=== PATIENT | female | born 1970 | race Hispanic/Latino ===

== ENCOUNTER 2017-03-01 08:55 | Emergency (ER) | payer MEDICAID ==
[2017-03-01 09:06] VITALS: BMI 31.3
[2017-03-01 09:07] VITALS: BP 119/77; PULSE 72; RESP 20; TEMP 98.1; O2SAT 100
[2017-03-01 11:22] LABS: BASO % 0.6 % (0.0-2.0); EOS # 0.1 K/uL (0.0-0.7); EOS % 1.7 % (0.0-4.0); HEMATOCRIT 35.4 % (34.0-47.0); LYMPH # 2.3 K/uL (1.0-4.3); LYMPH % 35.6 % (20.0-40.0); MEAN CORPUSCULAR HEMOGLOBIN 27.5 pg (27.0-31.0); MEAN CORPUSCULAR HGB CONC 33.1 g/dL (33.0-37.0); MONO # 0.5 K/uL (0.0-0.8); MONO % 8.4 % (0.0-10.0); NEUT # 3.4 K/uL (1.8-7.0); NEUT % 53.7 % (50.0-75.0); NRBC % 0.1 % (0.0-0.0); RED CELL DISTRIBUTION WIDTH 13.6 % (11.5-14.5); WHITE BLOOD COUNT 6.4 K/uL (4.8-10.8)
--- NOTE | 2017-03-01 11:25 | ED PDOC ---
HPI: CCC, URI, Sore Throat Time Seen by Provider: 03/01/17 09:34 Chief Complaint (Nursing): ENT Problem Chief Complaint (Provider): ear pain History Per: Patient History/Exam Limitations: no limitations Additional Complaint(s): 46yo F in Ed with 3d of left sided neck pain radiating to ear without fever, chills body aches drainage fro ear swelling of tonsils or cough. pt admits to discomfort when swallowing without trismus or drooling. Past Medical History Reviewed: Historical Data, Nursing Documentation, Vital Signs Vital Signs: Last Vital Signs Temp 98.1 F 03/01/17 09:06 Pulse 72 03/01/17 09:06 Resp 20 03/01/17 09:06 BP 119/77 03/01/17 09:06 Pulse Ox 100 03/01/17 12:04 - Medical History PMH: Bipolar Disorder, Depression, Diabetes, HTN - Surgical History Surgical History: Cholecystectomy, (2 ) - Family History Family History: States: Unknown Family Hx - Home Medications Home Medications: Ambulatory Orders Medication Instructions Recorded Aripiprazole [Abilify] 2 mg PO DAILY 04/09/15 Empagliflozin [Jardiance] 10 mg PO DAILY 04/09/15 Escitalopram [Lexapro] 10 mg PO DAILY 04/09/15 Desvenlafaxine Succinate [Pristiq] 100 mg PO DAILY 08/21/16 Third High Blood Pressure Medicine PO DAILY 08/21/16 amLODIPine [Norvasc] PO DAILY 08/21/16 hydroCHLOROthiazide [Microzide] mg PO DAILY 08/21/16 Cetirizine HCl [Zyrtec] 10 mg PO DAILY #15 capsule 01/28/17 Pseudoephedrine [Sudafed Tab] 60 mg PO Q6 PRN #8 tab 01/28/17 Ibuprofen [Motrin] 400 mg PO Q6 #30 tab 03/01/17 - Allergies Allergies/Adverse Reactions: Allergies Allergy/AdvReac Type Severity Reaction Status Date / Time No Known Allergies Allergy Verified 01/12/15 15:31 Review of Systems ROS Statement: Except As Marked, All Systems Reviewed And Found Negative Constitutional: Negative for: Fever, Chills ENT: Positive for: Throat Swelling Physical Exam - Reviewed Nursing Documentation Reviewed: Yes Vital Signs Reviewed: Yes - Physical Exam Appears: Positive for: Non-toxic, No Acute Distress, Uncomfortable Head Exam: Positive for: ATRAUMATIC, NORMAL INSPECTION, NORMOCEPHALIC Skin: Positive for: Normal Color, Warm, DRY Eye Exam: Positive for: Normal appearance, EOMI, PERRL ENT: Positive for: Normal ENT Inspection. Negative for: Pharyngeal Erythema, Tonsillar Exudate, Tonsillar Swelling Neck: Positive for: Normal, Pain On Movement Of Neck (pain noted to left submandilbular area mild swelling noted. ) Cardiovascular/Chest: Positive for: Regular Rate, Rhythm Respiratory: Positive for: CNT, Normal Breath Sounds Neurologic/Psych: Positive for: Alert, Oriented - Laboratory Results Result Diagrams: 03/01/17 11:16 03/01/17 11:16 - ECG O2 Sat by Pulse Oximetry: 100 - Progress ED Course And Treament: impression: muscle strain vs viral vs RPA-pt will get cbc/cmp and torodol. Medical Decision Making Medical Decision Making: pt with unremarkable CBC pt with normal strep test-pt advised strongly to monitor for s/s of infxn normal VS Disposition - Clinical Impression Clinical Impression: Neck sprain - Patient ED Disposition Is Patient to be Admitted: No Counseled Patient/Family Regarding: Studies Performed, Diagnosis, Need For Followup, Rx Given - Disposition Disposition: Routine/Home Disposition Time: 14:14 Condition: STABLE Prescriptions: Ibuprofen [Motrin] 400 mg PO Q6 #30 tab Instructions: Muscle Strain (ED)
[2017-03-01 11:26] LABS: MEAN CELL VOLUME 83.1 fl (81.0-99.0)
[2017-03-01 11:31] LABS: CHLORIDE 102 mmol/L (98-107); POTASSIUM 3.9 MMOL/L (3.6-5.0); SODIUM 140 mmol/l (132-148)
[2017-03-01 11:33] LABS: BILIRUBIN,TOTAL 0.5 mg/dl (0.2-1.3); CARBON DIOXIDE 27 mmol/L (22-30); GFR AFRICAN-AMERICAN > 60
[2017-03-01 11:34] LABS: ALKALINE PHOSPHATASE 86 U/L (38-126); ALT/SGPT 30 U/L (9-52); AST/SGOT 28 U/L (14-36); BLOOD UREA NITROGEN 13 mg/dl (7-17); CALCIUM 9.1 mg/dL (8.4-10.2); GLUCOSE,RANDOM 96 mg/dL (65-105)
[2017-03-01 11:50] LABS: ALB/GLOB RATIO 1.4 (1.0-2.1)
== END 2017-03-01 14:26 | disposition home or self-care (01) ==
LOC: H.ER 08:55
DX: M54.2 Cervicalgia (principal); E11.9 Type 2 diabetes mellitus without complications; F31.9 Bipolar disorder, unspecified; I10 Essential (primary) hypertension; J02.9 Acute pharyngitis, unspecified

== ENCOUNTER 2017-11-19 08:34 | Emergency (ER) | payer MEDICAID ==
[2017-11-19 08:34] VITALS: BMI 31.3
[2017-11-19 08:43] VITALS: BP 131/77; PULSE 94; RESP 20; TEMP 98.4; O2SAT 99
[2017-11-19] MEDS ORDERED: Sodium Chloride 0.9% 1,000 ML IV STA (09:23)
--- NOTE | 2017-11-19 09:26 | ED PDOC ---
HPI: Abdomen Time Seen by Provider: 11/19/17 09:08 Chief Complaint (Nursing): Abdominal Pain Chief Complaint (Provider): Epigastric pain History Per: Patient History/Exam Limitations: no limitations Onset/Duration Of Symptoms: Days () Outside of [place] travel?: No Current Symptoms Are (Timing): Still Present Additional History Per: Patient Additional Complaint(s): Pt. with epigastric pain. Similar in the past. Has had an endoscopy and dx with gastritis. Pt. tried otc meds and did not help. No new food or drinks. No back pain, dysuria, weakness, headaches, dizziness. No chest pain, lower abd pain. Has nausea, no vomit or diarrhea. Past Medical History Vital Signs: Last Vital Signs Temp 98.4 F 11/19/17 08:38 Pulse 94 H 11/19/17 08:38 Resp 20 11/19/17 08:38 BP 131/77 11/19/17 08:38 Pulse Ox 99 11/19/17 09:48 - Medical History PMH: Bipolar Disorder, Depression, Diabetes, HTN - Surgical History Surgical History: Cholecystectomy, (2 ) - Family History Family History: States: Unknown Family Hx - Living Arrangements Living Arrangements: With Family - Social History Current smoker - smoking cessation education provided: No Alcohol: None Drugs: Denies - Home Medications Home Medications: Ambulatory Orders Medication Instructions Recorded Aripiprazole [Abilify] 2 mg PO DAILY 04/09/15 Empagliflozin [Jardiance] 10 mg PO DAILY 04/09/15 Escitalopram [Lexapro] 10 mg PO DAILY 04/09/15 Desvenlafaxine Succinate [Pristiq] 100 mg PO DAILY 08/21/16 Third High Blood Pressure Medicine PO DAILY 08/21/16 amLODIPine [Norvasc] PO DAILY 08/21/16 hydroCHLOROthiazide [Microzide] mg PO DAILY 08/21/16 Cetirizine HCl [Zyrtec] 10 mg PO DAILY #15 capsule 01/28/17 Pseudoephedrine [Sudafed Tab] 60 mg PO Q6 PRN #8 tab 01/28/17 Ibuprofen [Motrin] 400 mg PO Q6 #30 tab 03/01/17 - Allergies Allergies/Adverse Reactions: Allergies Allergy/AdvReac Type Severity Reaction Status Date / Time Sulfa (Sulfonamide Allergy RASH Verified 11/19/17 08:46 Antibiotics) Review of Systems ROS Statement: Except As Marked, All Systems Reviewed And Found Negative Gastrointestinal: Positive for: Nausea, Abdominal Pain Physical Exam - Reviewed Nursing Documentation Reviewed: Yes Vital Signs Reviewed: Yes - Physical Exam Appears: Positive for: Non-toxic, No Acute Distress Head Exam: Positive for: ATRAUMATIC, NORMAL INSPECTION, NORMOCEPHALIC Skin: Positive for: Normal Color, Warm, DRY Eye Exam: Positive for: EOMI, Normal appearance, PERRL ENT: Positive for: Normal ENT Inspection Neck: Positive for: Normal, Painless ROM Cardiovascular/Chest: Positive for: Regular Rate, Rhythm Respiratory: Positive for: CNT, Normal Breath Sounds Gastrointestinal/Abdominal: Positive for: Bowel Sounds, Soft, Tenderness (mild epigastric) Back: Positive for: Normal Inspection Extremity: Positive for: Normal ROM Neurologic/Psych: Positive for: Alert, Oriented - Laboratory Results Result Diagrams: 11/19/17 09:45 11/19/17 09:45 Interpretation Of Abn Labs: no acute - ECG O2 Sat by Pulse Oximetry: 99 - Radiology X-Ray: Interpreted by Me, Viewed By Me X-Ray Interpretation: No Acute Disease - Progress ED Course And Treament: 1031: Stable. AAOx3. Pain free. Tolerated PO. Fu with pcp. Disposition - Clinical Impression Clinical Impression: Abdominal pain - Patient ED Disposition Is Patient to be Admitted: No Counseled Patient/Family Regarding: Studies Performed, Diagnosis, Need For Followup - Disposition Referrals: [facility] [Outside] - 11/20/17 Disposition: Routine/Home Disposition Time: 10:32 Condition: STABLE Additional Instructions: Return if not better in 3 days. Instructions: Acute Abdominal Pain (ED) Forms: [facility] (Yakut)
[2017-11-19 10:02] LABS: BASO # 0.1 K/uL (0.0-0.2); BASO % 0.6 % (0.0-2.0); EOS # 0.1 K/uL (0.0-0.7); EOS % 1.6 % (0.0-4.0); HEMATOCRIT 40.7 % (34.0-47.0); LYMPH # 1.8 K/uL (1.0-4.3); LYMPH % 19.6 % (20.0-40.0); MEAN CELL VOLUME 89.6 fl (81.0-99.0); MEAN CORPUSCULAR HGB CONC 32.4 g/dL (33.0-37.0); MEAN PLATELET VOLUME 8.6 fl (7.2-11.7); MONO # 0.8 K/uL (0.0-0.8); NEUT # 6.2 K/uL (1.8-7.0); NEUT % 69.2 % (50.0-75.0); NRBC % 0.3 % (0.0-0.0); RED CELL DISTRIBUTION WIDTH 12.8 % (11.5-14.5)
[2017-11-19 10:16] LABS: ALB/GLOB RATIO 1.5 (1.0-2.1); ALKALINE PHOSPHATASE 67 U/L (38-126); ALT/SGPT 36 U/L (9-52); AST/SGOT 19 U/L (14-36); BILIRUBIN,TOTAL 0.5 mg/dl (0.2-1.3); BLOOD UREA NITROGEN 9 mg/dl (7-17); CALCIUM 8.9 mg/dL (8.4-10.2); CARBON DIOXIDE 28 mmol/L (22-30); CHLORIDE 103 mmol/L (98-107); GFR AFRICAN-AMERICAN > 60; GLUCOSE,RANDOM 120 mg/dL (65-105); LIPASE 72 U/L (23-300); POTASSIUM 4.2 MMOL/L (3.6-5.0); SODIUM 140 mmol/l (132-148); TOTAL PROTEIN 7.3 G/DL (6.3-8.2)
--- NOTE | 2017-11-19 11:32 | RAD ---
HISTORY: epgiastric pain COMPARISON: Chest radiograph dated 08/21/2016 FINDINGS: LUNGS: No active pulmonary disease. PLEURA: No significant pleural effusion identified, no pneumothorax apparent. CARDIOVASCULAR: Normal. OSSEOUS STRUCTURES: No significant abnormalities. VISUALIZED UPPER ABDOMEN: Normal. OTHER FINDINGS: None. IMPRESSION: No active disease.
== END 2017-11-19 11:25 | disposition home or self-care (01) ==
LOC: H.ER 08:34
DX: R10.13 Epigastric pain (principal); E11.9 Type 2 diabetes mellitus without complications; F31.9 Bipolar disorder, unspecified; I10 Essential (primary) hypertension
CPT/HCPCS: 71010; 80053; 83690; 85025; 96361; 96374; 96375; 99282; J2405; J7040

== ENCOUNTER 2017-11-20 09:33 | Emergency (ER) | payer MEDICAID ==
[2017-11-20 09:33] VITALS: BMI 31.3
[2017-11-20] MEDS ORDERED: Iohexol 240 (50 ml) PO ONE (10:27)
--- NOTE | 2017-11-20 10:40 | ED PDOC ---
HPI: Abdomen Time Seen by Provider: 11/20/17 09:57 Chief Complaint (Nursing): Abdominal Pain Chief Complaint (Provider): Abd pain History Per: Patient History/Exam Limitations: no limitations Onset/Duration Of Symptoms: Days (Several days) Outside of [place] travel?: No Additional Complaint(s): Abd pain epigastric. Nausea, vomit, nonbloody since yesterday night. Pain on going for several days. Pt. here yesterday for the pain and felt better so she was dc. Pt. back as she is vomiting and pain returned. No chest pain, weakness , headaches, dizziness, cough, diarrhea. States she had a runny nose today. Past Medical History Vital Signs: Last Vital Signs Temp 100.6 F H 11/20/17 09:44 Pulse 95 H 11/20/17 09:44 Resp 21 11/20/17 09:44 BP 137/79 11/20/17 09:44 Pulse Ox 99 11/20/17 10:43 - Medical History PMH: Bipolar Disorder, Depression, Diabetes, HTN - Surgical History Surgical History: Cholecystectomy, (2 ) - Family History Family History: States: Unknown Family Hx - Living Arrangements Living Arrangements: With Family - Social History Current smoker - smoking cessation education provided: No Alcohol: None Drugs: Denies - Home Medications Home Medications: Ambulatory Orders Medication Instructions Recorded Aripiprazole [Abilify] 2 mg PO DAILY 04/09/15 Empagliflozin [Jardiance] 10 mg PO DAILY 04/09/15 Escitalopram [Lexapro] 10 mg PO DAILY 04/09/15 Desvenlafaxine Succinate [Pristiq] 100 mg PO DAILY 08/21/16 Third High Blood Pressure Medicine PO DAILY 08/21/16 amLODIPine [Norvasc] PO DAILY 08/21/16 hydroCHLOROthiazide [Microzide] mg PO DAILY 08/21/16 Cetirizine HCl [Zyrtec] 10 mg PO DAILY #15 capsule 01/28/17 Pseudoephedrine [Sudafed Tab] 60 mg PO Q6 PRN #8 tab 01/28/17 Ibuprofen [Motrin] 400 mg PO Q6 #30 tab 03/01/17 Ciprofloxacin HCl [Cipro] 500 mg PO BID 7 Days tab 11/20/17 Metronidazole [Flagyl] 500 mg PO TID 7 Days tablet 11/20/17 Ondansetron [Zofran] 4 mg PO Q8H PRN #6 tab 11/20/17 - Allergies Allergies/Adverse Reactions: Allergies Allergy/AdvReac Type Severity Reaction Status Date / Time Sulfa (Sulfonamide Allergy RASH Verified 11/19/17 08:46 Antibiotics) Review of Systems ROS Statement: Except As Marked, All Systems Reviewed And Found Negative ENT: Positive for: Nose Congestion Gastrointestinal: Positive for: Nausea, Vomiting, Abdominal Pain Physical Exam - Reviewed Nursing Documentation Reviewed: Yes Vital Signs Reviewed: Yes - Physical Exam Appears: Positive for: Non-toxic, No Acute Distress Head Exam: Positive for: ATRAUMATIC, NORMAL INSPECTION, NORMOCEPHALIC Skin: Positive for: Normal Color, Warm, DRY Eye Exam: Positive for: EOMI, Normal appearance, PERRL ENT: Positive for: Nasal Congestion. Negative for: Pharyngeal Erythema, Tonsillar Exudate Neck: Positive for: Normal, Painless ROM, Supple Cardiovascular/Chest: Positive for: Regular Rate, Rhythm Respiratory: Positive for: CNT, Normal Breath Sounds Gastrointestinal/Abdominal: Positive for: Bowel Sounds, Soft, Tenderness ( epigastric) Back: Positive for: Normal Inspection. Negative for: L CVA Tenderness, R CVA Tenderness Extremity: Positive for: Normal ROM. Negative for: Tenderness, Pedal Edema Neurologic/Psych: Positive for: Alert, Oriented - Laboratory Results Result Diagrams: 11/20/17 10:30 11/20/17 10:30 Interpretation Of Abn Labs: 10.9 wbc - ECG O2 Sat by Pulse Oximetry: 99 Pulse Ox Interpretation: Normal - CT Scan/US ct Other Rad Studies (CT/US): Read By Radiologist Other Rad Interpretation: enteritis - Progress ED Course And Treament: 1443: Considering 2nd visit and fever. Symptoms present again so admission preferred. Pt. refusing. Will fu with her pcp and specialist. Tolerating po. Afebrile. Feels better. Pain improved. Fu. Has capacity to make decision and is aaox3. Disposition - Clinical Impression Clinical Impression: Enteritis, Abdominal pain - Patient ED Disposition Is Patient to be Admitted: No Counseled Patient/Family Regarding: Studies Performed, Diagnosis, Need For Followup, Rx Given - Disposition Referrals: [facility] [Outside] - 11/21/17 Gatito Lebron MD [Staff Provider] - 11/21/17 Freddie Polo MD [Staff Provider] - 11/21/17 Disposition: Routine/Home Disposition Time: 14:46 Condition: STABLE Additional Instructions: Return soon as possible for further evaluation and treatment. See your specialist without fail for more treatment and evaluation. Prescriptions: Ciprofloxacin HCl [Cipro] 500 mg PO BID 7 Days tab Metronidazole [Flagyl] 500 mg PO TID 7 Days tablet Ondansetron [Zofran] 4 mg PO Q8H PRN #6 tab PRN Reason: Nausea/Vomiting Instructions: Enteritis (ED) Forms: [facility] (Mauritanian), [facility] ED School/Work Excuse
[2017-11-20 10:46] LABS: BASO % 0.4 % (0.0-2.0); EOS # 0.1 K/uL (0.0-0.7); EOS % 0.9 % (0.0-4.0); HEMATOCRIT 42.2 % (34.0-47.0); LYMPH # 1.7 K/uL (1.0-4.3); LYMPH % 15.1 % (20.0-40.0); MEAN CELL VOLUME 89.2 fl (81.0-99.0); MEAN CORPUSCULAR HEMOGLOBIN 29.4 pg (27.0-31.0); MEAN CORPUSCULAR HGB CONC 32.9 g/dL (33.0-37.0); MEAN PLATELET VOLUME 8.6 fl (7.2-11.7); MONO % 9.2 % (0.0-10.0); NEUT # 8.1 K/uL (1.8-7.0); NEUT % 74.4 % (50.0-75.0); RED CELL DISTRIBUTION WIDTH 12.9 % (11.5-14.5); WHITE BLOOD COUNT 10.9 K/uL (4.8-10.8)
[2017-11-20 11:10] LABS: ALB/GLOB RATIO 1.4 (1.0-2.1); ALKALINE PHOSPHATASE 70 U/L (38-126); ALT/SGPT 32 U/L (9-52); AST/SGOT 25 U/L (14-36); BILIRUBIN,TOTAL 0.8 mg/dl (0.2-1.3); BLOOD UREA NITROGEN 14 mg/dl (7-17); CALCIUM 8.9 mg/dL (8.4-10.2); CARBON DIOXIDE 23 mmol/L (22-30); CHLORIDE 105 mmol/L (98-107); GFR AFRICAN-AMERICAN > 60; GLUCOSE,RANDOM 99 mg/dL (65-105); LIPASE 65 U/L (23-300); POTASSIUM 4.3 MMOL/L (3.6-5.0); SODIUM 138 mmol/l (132-148); TOTAL PROTEIN 7.3 G/DL (6.3-8.2)
[2017-11-20] MEDS ORDERED: Sodium Chloride 0.9% 100 ML ONE (12:50)
[2017-11-20] MEDS ORDERED: Iohexol 300 100 ML IJ ONE (12:50)
[2017-11-20 13:00] LABS: VENOUS BLOOD GAS BASE EXCESS -1.2 mmol/L (0.0-2.0); VENOUS BLOOD GAS PCO2 39 mmHg (40-60); VENOUS BLOOD PH 7.39 (7.32-7.43)
--- NOTE | 2017-11-20 13:54 | CT ---
PROCEDURE: CT Abdomen and Pelvis with contrast HISTORY: abd pain COMPARISON: None. TECHNIQUE: Contrast dose: 95 mL Omnipaque 300 Radiation dose: Total exam DLP = 1005.6 mGy-cm. This CT exam was performed using one or more of the following dose reduction techniques: Automated exposure control, adjustment of the mA and/or kV according to patient size, and/or use of iterative reconstruction technique. FINDINGS: LOWER THORAX: Unremarkable. LIVER: Unremarkable. No gross lesion or ductal dilatation. GALLBLADDER AND BILE DUCTS: Prior cholecystectomy with surgical clips in place. PANCREAS: Unremarkable. No gross lesion or ductal dilatation. SPLEEN: Unremarkable. ADRENALS: Unremarkable. No mass. KIDNEYS AND URETERS: Unremarkable. No hydronephrosis. No solid mass. VASCULATURE: Unremarkable. No aortic aneurysm. BOWEL: Prior gastric bypass surgery. Circumferential wall thickening/ edema with surrounding hazy change of the afferent limb. No obstruction. APPENDIX: Normal appendix. PERITONEUM: Unremarkable. No free fluid. No free air. LYMPH NODES: Unremarkable. No enlarged lymph nodes. BLADDER: Unremarkable. REPRODUCTIVE: Right ovarian 2.8 x 2.5 centimeter cyst. BONES: No acute fracture. OTHER FINDINGS: None. IMPRESSION: Prior gastric bypass surgery. Circumferential wall thickening/edema with surrounding hazy change in the afferent limb compatible with afferent limb enteritis. Additional findings as above. Findings conveyed to Dr. Curtis by Dr. Beaver at 1:51 p.m. on 11/20/2017.
[2017-11-20 15:17] VITALS: BP 126/78; PULSE 78; RESP 17; TEMP 97; O2SAT 98
== END 2017-11-20 15:17 | disposition home or self-care (01) ==
LOC: H.ER 09:33
DX: K52.9 Noninfective gastroenteritis and colitis, unspecified (principal); E11.9 Type 2 diabetes mellitus without complications; F31.9 Bipolar disorder, unspecified; I10 Essential (primary) hypertension
CPT/HCPCS: 74177; 80053; 81025; 82803; 83690; 84484; 85025; 87040; 87804; 96374; 99282; J2405; Q9966; Q9967

== ENCOUNTER 2017-12-11 08:43 | Emergency (ER) | payer MEDICAID ==
[2017-12-11 08:44] VITALS: BMI 31.3
[2017-12-11 09:02] VITALS: BP 147/91; PULSE 98; RESP 16; TEMP 98; O2SAT 100
[2017-12-11] MEDS ORDERED: Lidocaine 5% Patch TD STA (09:31)
[2017-12-11] MEDS ORDERED: Lidocaine 5% Patch TD ONE (09:38)
--- NOTE | 2017-12-11 11:16 | RAD ---
PROCEDURE: Radiographs of the Lumbar Spine. HISTORY: back pain COMPARISON: No prior. FINDINGS: BONES: Normal lumbar curvature is appreciate without spondylolisthesis. Limited multilevel spondylosis identified predominately anteriorly. No destructive bony lesion identified. Vertebral body and disc interspace heights appear normal. There may be a subtle levoscoliotic lumbar spinal deformity. No destructive bony lesion identified. DISC SPACES: As above OTHER FINDINGS: Postcholecystectomy changes suggests at the right upper quadrant abdomen. 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 Multilevel spondylosis is quite mild but anterior. No apparent fracture or spondylolisthesis identified.
--- NOTE | 2017-12-11 11:41 | ED PDOC ---
HPI: Back Time Seen by Provider: 12/11/17 09:08 Chief Complaint (Nursing): Pain, Chronic Chief Complaint (Provider): low back pain History Per: Patient History/Exam Limitations: no limitations Onset/Duration Of Symptoms: Hrs (2) Current Symptoms Are (Timing): Still Present Quality Of Discomfort: Sharp Severity: Moderate Previous Symptoms: Back Pain Associated Symptoms: None Exacerbating Factor(s): Turning, Movement, Sitting Additional Complaint(s): 47yo female hx low back pain/ bulging discs seen on MRi from 2014 per her verbal report, takes tramadol frequently from a pain specialist in [place], now presents c/o worse low back pain since this morning, denies new injury, weakness, numbness or urinary difficulties. Past Medical History Reviewed: Historical Data, Nursing Documentation, Vital Signs Vital Signs: Last Vital Signs Temp 98.0 F 12/11/17 08:59 Pulse 98 H 12/11/17 08:59 Resp 16 12/11/17 08:59 BP 147/91 H 12/11/17 08:59 Pulse Ox 100 12/11/17 08:59 - Medical History PMH: Bipolar Disorder, Depression, Diabetes, HTN - Surgical History Surgical History: Cholecystectomy, (2 ) - Family History Family History: States: Unknown Family Hx - Living Arrangements Living Arrangements: With Family - Social History Current smoker - smoking cessation education provided: No - Home Medications Home Medications: Ambulatory Orders Medication Instructions Recorded Aripiprazole [Abilify] 2 mg PO DAILY 04/09/15 Empagliflozin [Jardiance] 10 mg PO DAILY 04/09/15 Escitalopram [Lexapro] 10 mg PO DAILY 04/09/15 Desvenlafaxine Succinate [Pristiq] 100 mg PO DAILY 08/21/16 Third High Blood Pressure Medicine PO DAILY 08/21/16 amLODIPine [Norvasc] PO DAILY 08/21/16 hydroCHLOROthiazide [Microzide] mg PO DAILY 08/21/16 Cetirizine HCl [Zyrtec] 10 mg PO DAILY #15 capsule 01/28/17 Pseudoephedrine [Sudafed Tab] 60 mg PO Q6 PRN #8 tab 01/28/17 Ibuprofen [Motrin] 400 mg PO Q6 #30 tab 03/01/17 Ciprofloxacin HCl [Cipro] 500 mg PO BID 7 Days tab 11/20/17 Metronidazole [Flagyl] 500 mg PO TID 7 Days tablet 11/20/17 Ondansetron [Zofran] 4 mg PO Q8H PRN #6 tab 11/20/17 Cyclobenzaprine [Cyclobenzaprine 10 mg PO Q8 PRN #9 tab 12/11/17 HCl] Lidocaine 5% [Lidoderm] 1 each TP DAILY PRN #6 patch 12/11/17 Naproxen [Naprosyn] 500 mg PO BID PRN #14 tablet 12/11/17 - Allergies Allergies/Adverse Reactions: Allergies Allergy/AdvReac Type Severity Reaction Status Date / Time metronidazole Allergy RASH Verified 12/11/17 08:59 Sulfa (Sulfonamide Allergy RASH Verified 11/19/17 08:46 Antibiotics) Review of Systems ROS Statement: Except As Marked, All Systems Reviewed And Found Negative Constitutional: Negative for: Fever, Chills Cardiovascular: Negative for: Chest Pain, Palpitations Respiratory: Negative for: Cough, Shortness of Breath Gastrointestinal: Negative for: Nausea, Vomiting, Abdominal Pain Genitourinary Female: Negative for: Dysuria, Incontinence, Hematuria Musculoskeletal: Positive for: Back Pain, Leg Pain. Negative for: Neck Pain, Shoulder Pain, Arm Pain Skin: Negative for: Rash, Lesions, Jaundice Neurological: Negative for: Weakness, Numbness, Headache, Dizziness Physical Exam - Reviewed Nursing Documentation Reviewed: Yes Vital Signs Reviewed: Yes - Physical Exam Appears: Positive for: Well, Non-toxic, No Acute Distress Head Exam: Positive for: ATRAUMATIC, NORMAL INSPECTION, NORMOCEPHALIC Skin: Positive for: Normal Color, Warm, DRY Eye Exam: Positive for: EOMI, Normal appearance, PERRL Neck: Positive for: Normal, Painless ROM. Negative for: Pain On Movement Of Neck Cardiovascular/Chest: Positive for: Regular Rate, Rhythm Respiratory: Positive for: CNT, Normal Breath Sounds Gastrointestinal/Abdominal: Positive for: Bowel Sounds, Soft. Negative for: Tenderness Back: Positive for: Vertebral Tenderness (lumbar), Decreased ROM, Muscle Spasm Extremity: Positive for: Normal ROM Neurologic/Psych: Positive for: Alert, Oriented. Negative for: Motor/Sensory Deficits - ECG O2 Sat by Pulse Oximetry: 100 Medical Decision Making Medical Decision Making: [facility] database query shows tramadol filled infrequently, she states she still has pills at home XRay LS spine performed neg for fracture or spondylolithesis per my initial read Given analgesic, muscle relaxant and lidoderm patch, re-evaluated 1125a with improvement Ambulating effectively, denies fever, weakness or numbness. Indications for return ER and need for followup discussed. Disposition - Clinical Impression Clinical Impression: Back pain - Patient ED Disposition Is Patient to be Admitted: No Counseled Patient/Family Regarding: Studies Performed, Diagnosis, Need For Followup, Rx Given - Disposition Referrals: Victorino Thao MD [Medical Doctor] - Disposition: Routine/Home Disposition Time: 11:40 Condition: STABLE Additional Instructions: Return to ER for any worse or new symptoms. Take medications as directed. See pain specialist/ back specialist as directed. Prescriptions: Cyclobenzaprine [Cyclobenzaprine HCl] 10 mg PO Q8 PRN #9 tab PRN Reason: Muscle Spasm Lidocaine 5% [Lidoderm] 1 each TP DAILY PRN #6 patch PRN Reason: Other Naproxen [Naprosyn] 500 mg PO BID PRN #14 tablet PRN Reason: Pain, Moderate (4-7) Instructions: Acute Low Back Pain (ED), Chronic Back Pain (ED) Forms: [employer] (Polish)
== END 2017-12-11 11:50 | disposition home or self-care (01) ==
LOC: H.ER 08:43
DX: M54.9 Dorsalgia, unspecified (principal); E11.9 Type 2 diabetes mellitus without complications; F31.9 Bipolar disorder, unspecified; I10 Essential (primary) hypertension
CPT/HCPCS: 72114; 81025; 82948; 96372; 99282; J1885